=== PATIENT | male | born 1980 | race Caucasian/White ===

== ENCOUNTER 2018-10-03 15:57 | Day surgery (SDC) | payer MEDICARE, OTHER ==
[2018-10-03] VITALS (17 sets, daily range): BP systolic 127–150; BP diastolic 63–75; PULSE 82–110; RESP 10–24; Ht 180.3 cm; Wt 96.4 kg
[~2018-10-03] VITALS: Ht 180.3 cm; Wt 96.4 kg
[~2018-10-03 15:57] MED LIST: SEVOFLURANE 15 MIN ONE
[2018-10-03] MEDS ORDERED: LACTATED RINGER'S 1,000 ML IV SCH (17:00)
--- NOTE | 2018-10-03 17:38 | PREAC ---
Date/Time of Note Date/Time of Note DATE: 10/03/18 TIME: 17:37 Anesthesia Eval and Record Evaluation Time Pre-Procedure Interview DATE: 10/03/18 TIME: 17:37 Age 38 Sex male NPO: 8 hrs Preoperative diagnosis Chronic sinusitis Planned procedure Endoscopic sinus surgery Past Medical History Past Medical History: Includes Pulm: Asthma Surgery & Anesthesia Issues No known issue Meds Anticoagulation: No Beta Thu within 24 hr: No Reason Beta Thu not given: Pt. not on B-Thu No Active Prescriptions or Reported Meds Current Medications Lactated Ringer's 1,000 ml @ 25 mls/hr Q24H IV Last administered on 10/03/18at 16:53; Admin Dose 25 MLS/HR; Start 10/03/18 at 17:00 Meds reviewed: Yes Allergies Coded Allergies: cefazolin (Verified Allergy, Unknown, HIVES, 10/03/18) ciprofloxacin (Verified Allergy, Unknown, HIVES, 10/03/18) Allergies Reviewed: Yes Labs/Studies Labs Reviewed: Reviewed by anesthesiologist test: N/A Pre-procedure Exam Last vitals Vital Signs Date Temp Pulse Resp B/P (MAP) Pulse Ox O2 O2 Flow FiO2 Time Delivery Rate 10/03/18 99.3 97 18 150/75 97 Room Air 16:35 (100) Airway: Adequate mouth opening Mallampati: Mallampati II Teeth: Normal Lung: Normal Heart: Normal ASA Physical Status ASA physical status: 2 Emergency: None Planned Anesthetic General/MAC: ETT Planned Pain Management Parenteral pain med Pre-operative Attestations Prior to commencing anesthesia and surgery, the patient was re-evaluated, there was verification of: *The patient's identity *The results of appropriate recent lab work and preoperative vital signs *The above evaluation not changing prior to induction *Anesthetic plan, risk benefits, alternative and complications discussed with patient/family; questions answered; patient/family understands, accepts and wishes to proceed. RAE MATTSON MD Oct 03, 2018 17:38
[2018-10-03] MEDS ORDERED: LIDOCAINE 1%/EPI 30 ML INJ ONE (17:49)
[2018-10-03] MEDS ORDERED: COCAINE 4% 4 ML TOP ONE (17:50)
[2018-10-03] MEDS ORDERED: OXYMETAZOLINE 0.05% 15 ML NAS SPRAY NASAL ONE (17:50)
[2018-10-03] MEDS ORDERED: BACITRACIN/POLYMYXIN 28.35 GM OINT TOP ONE (17:50)
[2018-10-03] MEDS ORDERED: GLYCOPYRROLATE 0.4 MG INJ ONE ×3 (17:52→18:55)
[2018-10-03] MEDS ORDERED: LIDOCAINE 2% (SDV) 5 ML INJ ONE ×2 (17:52→18:55)
[2018-10-03] MEDS ORDERED: MEPERIDINE 100 MG INJ ONE (17:52)
[2018-10-03] MEDS ORDERED: NEOSTIGMINE 3 MG/3 ML SYRINGE ONE ×2 (17:52→18:55)
[2018-10-03] MEDS ORDERED: ROCURONIUM 50 MG INJ ONE (17:52)
[2018-10-03] MEDS ORDERED: PROPOFOL 20 ML ONE (17:52)
[2018-10-03] MEDS ORDERED: SUCCINYLCHOLINE CHLORIDE 100 MG/5 ML SYG IV ONE (17:56)
--- NOTE | 2018-10-03 17:57 | HPN ---
Date/Time of Note Date/Time of Note DATE: 10/03/18 TIME: 17:57 Interval H&P Admission Note Pt. seen H&P reviewed: No system changes SONIA HENRIQUEZ MD Oct 03, 2018 17:57
[2018-10-03] MEDS ORDERED: LABETALOL HCL 20MG INJ ONE (18:28)
[2018-10-03] MEDS ORDERED: NEOMYC/POLYMYX/BACIT 30 GM OINT ONE (18:46)
[2018-10-03] MEDS ORDERED: DEXAMETHASONE 4 MG/ML 5 ML INJ ONE (18:54)
[2018-10-03] MEDS ORDERED: EPHEDrine 25 MG/5 ML SYG IV PRN (19:00)
[2018-10-03] MEDS ORDERED: ONDANSETRON 4 MG INJ IV PRN (19:00)
[2018-10-03] MEDS ORDERED: LABETALOL HCL 20MG INJ IV PRN (19:00)
[2018-10-03] MEDS ORDERED: METOCLOPRAMIDE 10 MG INJ IV PRN (19:00)
[2018-10-03] MEDS ORDERED: DIPHENHYDRAMINE 50 MG INJ IV PRN (19:00)
[2018-10-03] MEDS ORDERED: hydrALAzine 20 MG INJ IV PRN (19:00)
[2018-10-03] MEDS ORDERED: OXYCODONE/ACETAMINOPHEN (5/325) TAB PO PRN ×2 (19:00)
[2018-10-03] MEDS ORDERED: HYDROmorphONE 1 MG/5 ML IV SYRINGE IV PRN ×3 (19:00)
[2018-10-03] MEDS ORDERED: MEPERIDINE 25 MG INJ IV PRN (19:00)
[2018-10-03] MEDS ORDERED: FENTAnyl 50 MCG/ML VIAL IV PRN ×3 (19:00)
[2018-10-03] MEDS ORDERED: MIDAZOLAM 1 MG/ML 2 ML INJ IV PRN (19:00)
--- NOTE | 2018-10-03 19:04 | OPR ---
Date/Time of Note Date/Time of Note DATE: 10/03/18 TIME: 18:58 Operative Report Procedure Date: Oct 03, 2018 Preoperative Diagnosis Chronic right paranasal sinusitis Postoperative Diagnosis Same, maxillary, frontal and ethmoid sinuses involved. Mostly maxillary. Operation/Procedure Performed Revision image guided endoscopic right maxillary antrostomy, removal of tissue, frontal sinusotomy, and anterior ethmoidectomy. Surgeon see signature line Roads Supervisor None Anesthesia Type: general Estimated Blood Loss: 10 - 50 ml's Transfusion none Specimen Right maxillary sinus contents. Grafts/Implants none Complications none Pt Condition Post Procedure: stable Disposition: PACU Indications Chronic right maxillary sinusitis, not responsive to available antibiotics. Procedure Description Description of procedure:The patient was identified in the holding area. We had a discussion to confirm understanding of all indications risks benefits alternatives and postoperative care associated with the operation. The patient signed informed consent was taken to the operating room. The patient was laid supine on the operating room table and anesthesia was provided in the following manner: GETA. The face was draped in sterile fashion and the nose was packed with 4% cocaine pledgets. 0 endoscopy was performed of all nasal turbinates and meati. This revealed the findings described above. Namely, right middle meatus pus, anterior ethmoid remnant inglammation extending superiorly to the frontal sinus. The left side was relatively normal. The procedure began and was limited to the right side under image guidance. The [employer] system with sales representative church furniture present was utilized. The microdebrider was used to resect the superior uncinate process remnant as well as the anterior ethmoid remnant to the skull base until the area of the frontal sinus outflow tract was reached. A curved curet was used to re move the bony fragments. Next, with a 45 camera, the frontal sinus outflow tract was entered with a balloon dilator and dilation was performed for ten seconds. The tract was explored and any abnormal mucosa was resected. Care was taken not to cause too much mucosal disruption in this area in order to avoid scarring and stenosis. The tract was patent without polyp or obstructive pathology. Once the frontal sinus was addressed, the maxillary sinus ostium was identified and entered with the microdebrider. It was widened previously but obstructed by pus and inflammatory edema. There was pus, and firm mucinous material which was systematically removed with irrigation, suction and curette. No intrasinus mass or polyp was seen. Triple antibiotic solution was used to fill the sinus. The patient was awakened, extubated and taken to the PACU in stable condition. Complications: None. SONIA HENRIQUEZ MD Oct 03, 2018 19:04
--- NOTE | 2018-10-03 20:19 | PAC ---
Date/Time of Note Date/Time of Note DATE: 10/03/18 TIME: 20:19 Post-Anesthesia Notes Post-Anesthesia Note Last documented vital signs Vital Signs Date Temp Pulse Resp B/P (MAP) Pulse Ox O2 O2 Flow FiO2 Time Delivery Rate 10/03/18 88 15 131/68 94 20:10 (89) 10/03/18 Room Air 20:05 10/03/18 99.3 19:28 10/03/18 8.0 19:15 Activity: WNL Respiratory function: WNL Cardiovascular function: WNL Mental status: Baseline Pain reasonably controlled: Yes Hydration appropriate: Yes Nausea/Vomiting absent: Yes Comments BT: 98.8 RAE MATTSON MD Oct 03, 2018 20:19
== END 2018-10-03 21:10 | disposition home or self-care (01) ==
LOC: SDS 15:57
PROVIDERS: ATTEND Otolaryngology
DX: J32.0 Chronic maxillary sinusitis (principal); J32.1 Chronic frontal sinusitis; J32.2 Chronic ethmoidal sinusitis; J45.909 Unspecified asthma, uncomplicated
CPT/HCPCS: 31254; 31256; 31276; 87070; 87075; 87102; 87116; J1100; J1170; J2175; J2405; J2710